=== PATIENT | male | born 1940 | race Caucasian/White ===

== ENCOUNTER → 2018-08-17 | Outpatient (CLI) | payer MEDICARE, OTHER ==
--- NOTE | 2018-08-17 22:31 | CT ---
EXAMINATION TYPE: CT abdomen pelvis w con DATE OF EXAM: 08/17/2018 COMPARISON: NONE HISTORY: 77-year-old male with abdominal pain, elevated WBC. TECHNIQUE: Contiguous axial scanning of the abdomen and pelvis following administration of 100 ml Iso kelechi 300 IV contrast. Delayed images through the kidneys and coronal/sagittal reconstructions perform ed. CT DLP: 1823.4 mGycm Automated exposure control for dose reduction was used. FINDINGS: Heart normal size without pericardial effusion. Tiny hiatal hernia. Lung bases clear without pleural effusion. No focal liver lesion or biliary ductal dilatation. Portal venous system is patent. Adrenal glands and kidneys are within normal limits. There is a 1.2 cm gallstone in a nondistended ga llbladder. Spleen measures 1608 cm on axial series. Small 1 cm cystic lesion at the uncinate process of the pancreas. Possible mild fat stranding around the region of the pancreatic tail, for example, refer to coronal images 54 and 55. Moderate atherosclerotic calcifications within the abdominal aorta and iliac arteries. No dilated small bowel, free fluid, or free air. No mesenteric or retroperitoneal lymphadenopathy. Small fatty umbilical hernia. Short appendix is visualized. Mild stool burden and diverticulosis of the junction of the descending and sigmoid colon. Prostate gland measures 5.5 cm wide and 6.9 cm craniocaudal with prominent impression on the bladder base. Mild circumferential bladder wall thickening. No abnormal fluid collection in the pelvis or pel norma lymphadenopathy. Bones: Degenerative changes of the hips and SI joints. Multilevel degenerative changes throughout the spine with grade 1 anterolisthesis at L4-L5 and Baastrup's disease. IMPRESSION: 1. POSSIBLE MILD HAZY DENSITY AROUND THE PANCREATIC TAIL. CORRELATE TO EXCLUDE MILD ACUTE PANCREATITI S WITH AMYLASE AND LIPASE LEVELS. 2. A 1 CM CYSTIC LESION IN THE PANCREATIC UNCINATE PROCESS. ONE-YEAR FOLLOW-UP PREFERABLY WITH MRI IS RECOMMENDED. 3. SMALL HIATAL HERNIA, 1.2 CM GALLSTONE, SMALL FATTY UMBILICAL HERNIA, AND LEFT-SIDED COLONIC DIVERT ICULOSIS. 4. PROSTATOMEGALY MEASURING 5.5 X 6.9 CM. CORRELATE FOR SYMPTOMS OF BPH. MILD CIRCUMFERENTIAL BLADDER WALL THICKENING COULD REPRESENT CHRONIC BLADDER WALL HYPERTROPHY OR CYSTITIS.
== END | disposition home or self-care (01) ==
LOC: RADCTMAIN 14:22
PROVIDERS: ATTEND Family Medicine
DX: K80.20 Calculus of gallbladder without cholecystitis without obstruction (principal); K86.2 Cyst of pancreas; K44.9 Diaphragmatic hernia without obstruction or gangrene; K42.9 Umbilical hernia without obstruction or gangrene; K57.30 Diverticulosis of large intestine without perforation or abscess without bleeding; N40.0 Benign prostatic hyperplasia without lower urinary tract symptoms; N32.89 Other specified disorders of bladder
CPT/HCPCS: 82565; 84520; 74177; 36415; Q9967

== ENCOUNTER 2018-09-22 10:15 | Day surgery (SDC) | payer MEDICARE ==
[2018-09-17 15:07] VITALS: BMI 34.5
[~2018-09-22 10:15] MED LIST: DEXAMETHASONE SOD PHOSPHATE 10 MG/ML 1 ML VIAL IV ONE; HEPARIN SODIUM,PORCINE 5,000 UNIT/ML 1 ML VIAL SQ ONE; HYDROmorphone 0.5 MG/0.5 ML SYRINGE IVP PRN; LACTATED RINGERS 1,000 ML IV SCH; LIDOCAINE 4% (PF) 5 ML AMP IH PRN; ONDANSETRON 4 MG/2 ML VIAL IVP ONE; SCOPOLAMINE 1.5MG/72HR PATCH TRANSDERM ONE; ceFAZolin IN SWFI 2 GM/20 ML SYRINGE IVP ONE
[2018-09-22] MEDS ORDERED: LIDOCAINE 1% 20 ML VIAL (10MG/ML) FOR IV START INTRADERMA ONE (10:35)
--- NOTE | 2018-09-22 12:26 | P.GSHP ---
History of Present Illness H&P Date: 09/22/18 Chief Complaint: Right upper quadrant pain This is a 77-year-old male who presents today for laparoscopic cholecystectomy. Patient's upper quadrant pain. He is worked up found have gallstones. Past Medical History Past Medical History: CVA/TIA, Hyperlipidemia, Hypertension, Prostate Disorder Additional Past Medical History / Comment(s): benign growth removed from forehead History of Any Multi-Drug Resistant Organisms: None Reported Past Surgical History: No Surgical Hx Reported Past Anesthesia/Blood Transfusion Reactions: No Reported Reaction Smoking Status: Never smoker - Past Family History Mother Family Medical History: No Reported History Medications and Allergies Home Medications Medication Instructions Recorded Confirmed Type Aspirin 325 mg PO DAILY 09/17/18 09/22/18 History Atorvastatin [Lipitor] 20 mg PO DAILY 09/17/18 09/22/18 History Cetirizine HCl [Zyrtec] 10 mg PO DAILY 09/17/18 09/22/18 History Clopidogrel [Plavix] 75 mg PO DAILY 09/17/18 09/22/18 History Finasteride [Proscar] 5 mg PO DAILY 09/17/18 09/22/18 History Hydrochlorothiazide [Hydrodiuril] 12.5 mg PO DAILY 09/17/18 09/22/18 History Lisinopril [Zestril] 10 mg PO DAILY 09/17/18 09/22/18 History Magnesium 400 mg PO DAILY 09/17/18 09/22/18 History Multivitamin [Men's Multi-Vitamin] 1 each PO DAILY 09/17/18 09/22/18 History Potassium 99 mg PO DAILY 09/17/18 09/22/18 History Terazosin HCl 10 mg PO DAILY 09/17/18 09/22/18 History Allergies Allergy/AdvReac Type Severity Reaction Status Date / Time No Known Allergies Allergy Verified 09/22/18 11:20 Surgical - Exam Vital Signs Temp Pulse Resp BP Pulse Ox 97.2 F L 45 L 15 178/74 97 09/22/18 11:35 09/22/18 11:35 09/22/18 11:35 09/22/18 11:35 09/22/18 11:35 - General well developed, no distress - Eyes PERRL - ENT normal pinna - Neck no masses - Respiratory normal expansion - Cardiovascular Rhythm: regular - Abdomen Abdomen: soft, non tender Assessment and Plan Assessment: Cholelithiasis Chronic cholecystitis We'll perform laparoscopic cholecystectomy.
[2018-09-22] MEDS ORDERED: fentaNYL (PF) 50 MCG/ML 2 ML AMP ONE (12:28)
[2018-09-22] MEDS ORDERED: LIDOCAINE 1% INJ 10MG/ML (20 ML MDV) ONE (12:28)
[2018-09-22] MEDS ORDERED: SUCCINYLCHOLINE CHLORIDE VIAL 200 MG/10 ML VIAL IV ONE (12:28)
[2018-09-22] MEDS ORDERED: PROPOFOL 10 MG/ML 20 ML VIAL IV ONE (12:28)
[2018-09-22] MEDS ORDERED: GLYCOPYRROLATE 0.2 MG/ML 2 ML VIAL ONE (12:28)
[2018-09-22] MEDS ORDERED: MIDAZOLAM 2 MG/2 ML VIAL ONE (12:28)
[2018-09-22] MEDS ORDERED: ceFAZolin IN SWFI 2 GM/20 ML SYRINGE IVP ONE (12:28)
[2018-09-22] MEDS ORDERED: NEOSTIGMINE 1 MG/ML 10 ML VIAL ONE (12:28)
[2018-09-22] MEDS ORDERED: ROCURONIUM BROMIDE 10 MG/ML 10 ML VIAL IV ONE (12:28)
[2018-09-22] MEDS ORDERED: BUPIVACAIN-EPI 0.25%-1:200,000 30 ML VIAL SQ ONE (12:45)
[2018-09-22 13:49] VITALS: TEMP 97.1
--- NOTE | 2018-09-22 13:59 | P.OP ---
Date of Procedure: 09/22/18 Preoperative Diagnosis: Cholelithiasis Postoperative Diagnosis: Cholelithiasis Incarcerated ventral hernia Procedure(s) Performed: Laparoscopic cholecystectomy Laparoscopic repair of incarcerated ventral hernia Partial omentectomy Anesthesia: ANA LILIA Surgeon: Jose Luo Estimated Blood Loss (ml): 5 Pathology: other (Gallbladder, omentum) Condition: stable Disposition: PACU Description of Procedure: The patient was placed on the operating table. The patient received a general endotracheal tube anesthesia. The patients abdomen was prepped and draped in the usual sterile fashion. patient had an incarcerated ventral hernia located just above the umbilicus. The skin was incised and then the hernia sac was grasped with a pair of Chun' s. Using electrocautery incarcerated hernia was transected. The specimens of pathology. The 5 mm trocar is placed directly into the peritoneal cavity. And then the abdomen was insufflated. The abdomen was then insufflated. After adequate insufflation, the 10 mm trocar was placed in the peritoneal cavity. Following this the laparoscope was placed in the peritoneal cavity. The patient was placed in the head-up, right side up position and then a 5 mm trocar was placed in the right lateral and right subcostal position under direct visualization. A 8 mm trocar was placed in the epigastric position. The gallbladder was grasped in the fundus and infundibulum. Traction on the gallbladder was placed in the lateral and the cephalad positions. The triangle of Calot was visualized.. The cystic duct was bluntly dissected until the union of the cystic duct and common bile duct was seen. The cystic duct was then divided and sealed with the Harmonic scissors. A PDS Endoloop was then placed throughout the cystic duct stump. The cystic artery divided and sealed with the Harmonic scissors. The gallbladder was then removed from the liver bed using Harmonic scissors. The gallbladder was then extracted through the epigastric port site. Operative field was checked for any bleeding spots and Harmonic scissors was used to coagulate the liver bed. The abdomen was irrigated. the ventral hernia site was closed using a Barrera Flores suture passer. 0 Vicryl was used to close the hernia. The trocars were removed. The skin was closed using interrupted 3-0 Vicryl suture. Dermabond dressing were applied. The patient tolerated the procedure well.
[2018-09-22 14:35] VITALS: RESP 18
[2018-09-22] MEDS ORDERED: LACTATED RINGERS 1,000 ML IV ONE (14:39)
[2018-09-22 15:30] VITALS: BP 176/80; PULSE 52
== END 2018-09-22 16:09 | disposition home or self-care (01) ==
LOC: OR 10:15
PROVIDERS: ATTEND Surgery
DX: K80.10 Calculus of gallbladder with chronic cholecystitis without obstruction (principal); K43.6 Other and unspecified ventral hernia with obstruction, without gangrene; I10 Essential (primary) hypertension; E78.5 Hyperlipidemia, unspecified; N40.0 Benign prostatic hyperplasia without lower urinary tract symptoms; I69.398 Other sequelae of cerebral infarction; Z79.02 Long term (current) use of antithrombotics/antiplatelets; Z79.82 Long term (current) use of aspirin; Z79.899 Other long term (current) drug therapy
CPT/HCPCS: 47562; 49653; J2250; J0330; J1644; J1100; J2710; J2405; J2001; J3010; J2704; J0690; 88302; 88304